=== PATIENT | female | born 1980 | race Caucasian/White ===

== ENCOUNTER 2022-10-15 15:54 | Outpatient (CLI) | payer OTHER, SELFPAY | END 2022-10-15 15:55 | disposition home or self-care (01) | LOC: NFLDREF 10-16 08:06 | PROVIDERS: PCP Physician Assistant Medical; Referring Provider Physician Assistant Medical; Visit Provider Nurse Practitioner Family | DX: L65.9 Nonscarring hair loss, unspecified (principal); Z79.899 Other long term (current) drug therapy | CPT/HCPCS: 80076; 82728; 84443 ==

== ENCOUNTER 2022-11-03 17:15 | Emergency (ER) | payer OTHER, MEDICAID, SELFPAY ==
[2022-11-03 17:21] VITALS: BP 136/95; PULSE 102; RESP 18; TEMP 36.6; O2SAT 100; BMI 24.6
[2022-11-03 17:30] VITALS: BP 126/88; PULSE 91; RESP 18; O2SAT 100
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
[2022-11-03 18:30] LABS: Basophils Absolute Auto 0.04 K/uL (0.00-0.30); Basophils Percent Auto 0.4 % (0.0-3.0); Eosinophils Absolute Auto 0.03 K/uL (0.00-0.50); Eosinophils Percent Auto 0.3 % (0.0-7.0); Hematocrit 46.7 % (33.0-51.0); Hemoglobin* 15.3 gm/dL (12.0-16.0); Immature Granulocytes Abs Auto 0.01 K/uL (0.00-0.30); Immature Granulocytes Pct Auto 0.1 %; Lymphocytes Absolute Auto 3.43 K/uL (0.90-2.90); Lymphocytes Percent Auto 33.6 % (20-44); Mean Corpuscular HGB Conc 33 gm/dL (32-36); Mean Corpuscular Hemoglobin 28 pg (26-34); Mean Corpuscular Volume 86 fL (80-100); Monocytes Percent Auto 4.7 % (0.0-11.0); Neutrophils Absolute Auto 6.23 K/uL (1.7-7.0); Neutrophils Percent Auto 60.9 % (42.0-72.0); Platelet Count* 395 K/uL (140-440); RDW Coefficient of Variation % 12.8 % (11.5-15.5); Red Blood Count 5.43 m/uL (4.00-5.20); White Blood Count* 10.22 K/uL (4.50-11.00)
[2022-11-03 18:32] LABS: Appearance Urine Clear (Clear); Bilirubin Urine Negative (Negative); Blood Urine Trace-intact (Negative); Color Urine Yellow (Yellow); Glucose Urine Negative (Negative); Ketones Urine Trace (Negative); Leukocyte Esterase Urine Negative (Negative); Nitrite Urine Negative (Negative); Protein Urine Negative (Negative); Urobilinogen Urine 0.2 (0.2-1.0)
[2022-11-03 18:34] LABS: Slide Review Reflex No
[2022-11-03 18:41] LABS: RBC Urine 0-2 (0-2); Squamous Epithelial Cell Urine Few (None-Few); WBC Urine 0-2 (0-5)
[2022-11-03 18:44] LABS: Albumin* 4.6 g/dL (3.3-5.0)
[2022-11-03 18:45] LABS: Chloride* 102 mmol/L (96-114); Potassium* 3.8 mmol/L (3.6-5.1); Sodium* 138 mmol/L (135-149)
[2022-11-03 18:47] LABS: Alanine Aminotransferase* 24 U/L (4-35); Alkaline Phosphatase* 51 U/L (40-150); Aspartate Amino Transferase* 26 U/L (12-35); Bilirubin Direct* 0.1 mg/dL (0.0-0.5); Bilirubin Total* 1.1 mg/dL (0.1-1.5); Creatinine* 0.7 mg/dL (0.5-1.5); Est. Creatinine Clearance* 93.25; Estimated Glomerular Filt Rate 110 ml/min; Magnesium* 2.1 mg/dL (1.5-2.6)
[2022-11-03 18:48] LABS: Blood Urea Nitrogen* 12 mg/dL (5-24); Carbon Dioxide* 27 mmol/L (20-32); Glucose* 93 mg/dL (60-115)
[2022-11-03 18:49] LABS: Calcium* 9.5 mg/dL (8.4-10.6)
[2022-11-03 18:55] LABS: C Reactive Protein* < 0.5 mg/dL (0.5-1.0)
[2022-11-03] MEDS: 0.9 % SODIUM CHLORIDE 1000 ml 1,000 ML IV (18:57)
[2022-11-03 19:43] VITALS: BP 122/77; PULSE 85; RESP 18; TEMP 36.9; O2SAT 100
[2022-11-05 10:44] LABS: Cortisol, Serum 4.8 ug/dL
== END 2022-11-03 19:58 | disposition home or self-care (01) ==
PROVIDERS: Emergency Provider Family Medicine; PCP Physician Assistant Medical
DX: R53.83 Other fatigue (principal); R53.1 Weakness; R19.7 Diarrhea, unspecified
CPT/HCPCS: 36415; 80048; 80076; 81001; 82533; 83735; 85025; 86140; 96360; 99284; J7030

== ENCOUNTER 2024-02-24 10:03 | Outpatient (CLI) | payer OTHER, SELFPAY | END 2024-02-24 10:04 | disposition home or self-care (01) | PROVIDERS: PCP Physician Assistant Medical; Visit Provider Physician Assistant Medical | DX: R63.4 Abnormal weight loss (principal); Z13.29 Encounter for screening for other suspected endocrine disorder; Z13.228 Encounter for screening for other metabolic disorders | CPT/HCPCS: 80053; 83690; 84443 ==

== ENCOUNTER 2024-08-09 13:44 | Outpatient (CLI) | payer OTHER, SELFPAY | END 2024-08-09 13:45 | disposition home or self-care (01) | PROVIDERS: PCP Physician Assistant Medical; Visit Provider Physician Assistant Medical | DX: R63.4 Abnormal weight loss (principal); M25.50 Pain in unspecified joint; N94.3 Premenstrual tension syndrome; Z13.6 Encounter for screening for cardiovascular disorders; Z11.4 Encounter for screening for human immunodeficiency virus [HIV]; Z11.59 Encounter for screening for other viral diseases | CPT/HCPCS: 80053; 80061; 84443; 86703; 86803 ==

== ENCOUNTER 2024-08-16 13:06 | Outpatient (CLI) | payer MEDICAID, SELFPAY ==
--- NOTE | 2024-08-16 13:00 | CRLHL7_ITS ---
For Patients: As a result of the Century Cures Act, medical imaging exams and procedure reports are released immediately into your electronic medical record. You may view this report before your referring provider. If you have questions, please contact your health care provider. INDICATION: Weight loss. Loss of appetite. Epigastric abdominal pain. TECHNIQUE: CT scan of the chest, abdomen, and pelvis with 75 cc of Isovue-370 given intravenously. FINDINGS: Chest: No mediastinal or hilar adenopathy. No axillary adenopathy. No central pulmonary emboli. The lungs show no focal pulmonary opacities. No pneumothorax. Abdomen and pelvis: A few small probable cysts in the liver are too small to completely characterize. No other focal abnormalities identified in the visualized portions of the liver, spleen, pancreas, adrenal glands, and kidneys. No hydronephrosis. No obstructing uroliths. The GI tract is incompletely distended but shows no gross abnormalities. Normal appendix. No retroperitoneal, pelvic sidewall, or mesenteric adenopathy. Impression : 1. No acute abnormalities of the chest, abdomen, or pelvis identified. Please note that all CT scans at this facility use dose modulation, iterative reconstruction, and/or weight-based dosing when appropriate to reduce radiation dose to as low as reasonably achievable. Dictated by Darion Cruz MD @ 08/18/2024 10:46:15 AM (Electronically Signed)
== END 2024-08-16 13:07 | disposition home or self-care (01) ==
PROVIDERS: PCP Physician Assistant Medical; Visit Provider Physician Assistant Medical
DX: R63.4 Abnormal weight loss (principal); R10.13 Epigastric pain; R19.5 Other fecal abnormalities; R11.0 Nausea
CPT/HCPCS: 71260; 74177; Q9967